=== PATIENT | male | born 1945 | race Caucasian/White ===

== ENCOUNTER 2018-06-07 12:36 | Inpatient (IN) | payer BC, OTHER ==
--- NOTE | ~2018-06-07 | D ---
[facility] [place] [address] DISCHARGE SUMMARY Name: STEPHANIE PENNY Room #: 209-P ADM IN M.R.#: [id number] Admission: 06/07/18 ������������������ Attend Phys: Kishore Perez Discharge: ������������������ Date of : 47 Report #: [id number] THIS REPORT FOR: //name// CC: Kishore Perez Paulino Shanique DATE OF SERVICE: 06/08/2018 ADMITTING DIAGNOSIS: Persistent paroxysmal atrial fibrillation. PROCEDURES PERFORMED: 1. Electrical cardioversion. 2. Supervision of conscious sedation. DISCHARGE MEDICATIONS: 1. Home meds. 2. Amiodarone 200 mg p.o. b.i.d. for a week, q.a.m. indefinitely. FOLLOWUP: Dr. Perez in 4 weeks. BRIEF CLINICAL HISTORY: See history and physical in chart. HOSPITAL COURSE: The patient was admitted to the hospital and underwent IV amiodarone initiation. He tolerated this well, but did not convert to sinus rhythm and subsequently on the morning following his admission, he was brought to the cardiac catheterization laboratory where electrical cardioversion was performed without complications. A synchronized 200 joule shock was then performed via AP paddles, which converted him to sinus rhythm. He tolerated the procedure well. Post-procedure, he was allowed to ambulate and is being discharged to home with previously stated discharge instructions and medications, in improved and stable condition. DISCHARGE DIET: [place] [employer] step 1 diet. ��������������������������������������������� ���������������������������������������� By: ��������������������������������������������� 1329 1343 Kishore Perez MD /taylor
--- NOTE | ~2018-06-07 | P ---
[facility] [place] [place] [address] PROCEDURE REPORT Name: STEPHANIE PENNY Room #: 209-P ADM IN M.R.#: [id number] Admission: 06/07/18 ������������������ Attend Phys: Kishore Perez Discharge: ������������������ Date of : 47 Report #: [id number] THIS REPORT FOR: //name// CC: Kishore Perez Paulino Grimesrei DATE OF SERVICE: 06/08/2018 PROCEDURE: 1. Electrical cardioversion with continuous oximetric monitoring. 2. Conscious sedation, supervision. PROMOTIONAL MARKETING AGENT: Kishore Perez MD. BRIEF DESCRIPTION OF PROCEDURE: After informed consent was obtained, the patient was brought to the cardiac catheterization laboratory, prepped and hold. AP paddles were then placed and conscious sedation was initiated with 4 mg of Versed and 25 of Demerol IV push. A single isolated synchronized shock at 200 joules biphasic mode was performed. This converted the patient to sinus rhythm. He was subsequently reversed. No complications were noted. The patient tolerated the procedure well. ��������������������������������������������� ���������������������������������������� By: ��������������������������������������������� 1327 1336 Kishore Perez MD /nt
[2018-06-07 14:05] LABS: HEMATOCRIT 42.1 % (42.0-52.0); HEMOGLOBIN 14.3 gm/dL (14.0-18.0); MCH 31.2 pg (26.0-34.0); MCV 91.8 fL (80.0-100.0); RBC 4.58 mil/uL (4.50-6.00); RDW 14.3 % (10.5-14.5); WBC 4.7 thou/uL (4.0-11.0)
[2018-06-07 14:21] LABS: CALCIUM 9.2 mg/dL (8.5-10.1); POTASSIUM 3.6 mmol/L (3.5-5.1)
--- NOTE | 2018-06-07 14:40 | NUR ---
PT ADMIT FOR A FIB AMIODARONE DRIP STARTED . PT IS ALERT AND ORIENTED X4. PLEASANT SPOUSE WITH PT LUNGS ARE CLEAR. PT WITH SPOUSE. ON ROOM AIR. BLOOD PRESSSURE HIGH ON ADMISSION BUT DIDNT TAKE BLOOD PRESSURE MEDS. BLOOD PRESSURE MEDS GIVEN TO PT UPON ARIVAL. NOTIFIED DR. 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 PT REPORTS HE HAS HAD IS SINCE SAM. DENIES CHEST PAIN. WILL CONTINUE TO ASSESS AND MONITOR PTS STATUS WITH ADMISISON
[2018-06-07 20:48] VITALS: BP 159/97
[2018-06-07 23:34] VITALS: BP 157/106
--- NOTE | 2018-06-08 04:18 | NUR ---
Pt admitted for elective cardioversion. On Amiodarone drip. BP remains elevated, and pt remains asymptomatic. pt is Afib of court recording monitor. Denies chest pain, nausea or vomiting. possible cadioversion to be done this morning after EKG confirmation of Afib. Uses home CPAP, O2 SATS above 90. will continue to follow poc.
[2018-06-08 04:23] VITALS: BP 169/111
--- NOTE | 2018-06-08 08:38 | EKG ---
[address] [address] ELECTROCARDIOGRAM REPORT Name: ZOHAIBFORTUNATOCricket Fritz Room #: 209-P ADM IN M.R.#: [id number] ������������������ Admission: 06/07/18 ������������������ Attend Phys: Kishore Perez Discharge: ������������������ Date of : 47 Report #: [id number] ����������������������������������������������������������������� [id number] THIS REPORT FOR: //name// 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[employer]: [employer] : 1945 Requested By: Mey Webb Order Number: [id number] MD: Jesús Melchor Measurements Intervals [place] Rate: 72 P: [place]: QRS: -29 QRSD: 97 T: 22 QT: 494 QTc: 541 Interpretive Statements Atrial fibrillation Inferior infarct, old Baseline wander in lead(s) V3 No previous ECG available for comparison Electronically Signed On 06-08-2018 8:37:59 COMPUTATIONAL GENETICIST by Jesús Melchor [email or web address] ��������������������������������������������� <ELECTRONICALLY SIGNED> ���������������������������������������� By: Jesús Melchor MD ��������������������������������������������� 06/08/18 0837 0649 [id number] Jesús Melchor MD /DEDRICK
[2018-06-08 09:20] VITALS: BP 157/91
[2018-06-08 13:57] VITALS: BP 157/91
[2018-06-08] MEDS ORDERED: PACERONE 200 M200 M1 PO ×2 (13:59→14:00)
--- NOTE | 2018-06-08 14:14 | NUR ---
PT POST CARDIOVERSION. SPOKE WITH DR. BROOKS, PT OKAY TO DISCHARGE AT 1500. CALLED IN SCRIPTS TO PHARMACY FOR AMIODARONE. PT TO DISCHARGE ON 200 MG BID X2 WEEKS THEN TAKE 200 MG PO DAILY. CONTINUE HOME MEDICATION. FOLLOW UP APPOINTMENT IN 4 WEEKS.
--- NOTE | 2018-06-08 15:46 | NUR ---
DISCHARGE EDUCATION COMPLETE WITH PATIENT. IV TAKEN OUT. TELEMONITOR OFF. AT BEDSIDE DURING DISCHARGE. AWARE OF FOLLOW UP APPOINTMENT.
== END 2018-06-08 16:23 | disposition home or self-care (01) | DRG 310 ==
LOC: 2N 12:36 → ENTRNSPT 06-08 15:16 → EDTRNSPTSTS 06-08 15:20 → 2N 06-08 16:23
PROVIDERS: Nurse Practitioner Gerontology; ADMIT Internal Medicine
PROC: 5A2204Z Restoration of Cardiac Rhythm, Single (ICD-10-PCS; principal; 2018-06-08)
DX: I48.91 Unspecified atrial fibrillation (principal); I10 Essential (primary) hypertension; E78.5 Hyperlipidemia, unspecified; F41.9 Anxiety disorder, unspecified; F32.9 Major depressive disorder, single episode, unspecified
CPT/HCPCS: 10081; 10797

== ENCOUNTER → 2019-06-07 | Outpatient (CLI) | payer BC ==
[~2019-06-07] MED LIST: CELEXA 10 MG TA10 M1 PO; CHLORTHALIDONE25 MG PO; ELIQUIS5 MG PO; KLOR-CON 1010 MEQ PO; LIPITOR 20 MG T20 M1 PO; NEXIUM 40 MG CA40 M1 PO; PACERONE 200 M200 M1 PO; ZESTRIL40 MG PO
== END ==
LOC: SJCVCIMAG 11:29
DX: I11.9 Hypertensive heart disease without heart failure (principal); I48.0 Paroxysmal atrial fibrillation; R06.00 Dyspnea, unspecified

== ENCOUNTER → 2019-06-16 | Outpatient (CLI) | payer BC ==
[~2019-06-16] VITALS: Ht 167.6 cm; Wt 89.4 kg
--- NOTE | ~2019-06-16 | O ---
[facility] [place] [address] OPERATIVE REPORT Name: STEPHANIE PENNY Room #: REG [facility] Galo#: [id number] Admission: 06/16/19 Attend Phys: Kishore Perez Discharge: Date of : 47 Report #: [id number] THIS REPORT FOR: cc: Paulino Bay MD,Paulino Perez,Kishore Finnegan MD ~ CC: Kishore Bay DATE OF SERVICE: 06/16/2019 INDICATIONS: This is a 73-year-old male patient with symptomatic paroxysmal atrial fibrillation. PROCEDURE PERFORMED: 1. Electrical cardioversion. 2. Supervision of conscious sedation. CARDIOLOGY: Kishore Perez M.D. BRIEF DESCRIPTION OF PROCEDURE: After informed consent was obtained, the patient was brought to the cardiac catheterization laboratory prep and hold. He was sedated with 3 mg of IV Versed and 50 mg of IV Demerol. Continuous electrocardiographic and oximetric monitoring was carried forth throughout the procedure. One synchronized 200 joules biphasic was performed, which converted the patient to sinus rhythm. He was then allowed to recover, monitored without any complications. The patient tolerated the procedure well. By: [id number] Kishore Perez MD /nt
[2019-06-16 08:25] VITALS: BP 154/102
== END | disposition home or self-care (01) ==
LOC: CATH 08:01
DX: I48.0 Paroxysmal atrial fibrillation (principal); I10 Essential (primary) hypertension; E78.5 Hyperlipidemia, unspecified; K21.9 Gastro-esophageal reflux disease without esophagitis; E66.09 Other obesity due to excess calories; G47.33 Obstructive sleep apnea (adult) (pediatric); Z98.890 Other specified postprocedural states; Z79.899 Other long term (current) drug therapy; Z82.49 Family history of ischemic heart disease and other diseases of the circulatory system; Z90.49 Acquired absence of other specified parts of digestive tract; Z87.891 Personal history of nicotine dependence; Z79.01 Long term (current) use of anticoagulants

== ENCOUNTER → 2020-03-13 | Outpatient (CLI) | payer BC ==
[2020-03-13 11:40] VITALS: BP 150/90
--- NOTE | 2020-03-13 22:46 | CATHLAB ---
[facility] [place] [address] INVASIVE PROCEDURE REPORT Name: STEPHANIE PENNY Room #: REG SAMY Rosenthal#: [id number] Admission: 03/13/20 Attend Phys: Kishore Perez Discharge: Date of : 47 Report #: [id number] THIS REPORT FOR: cc: Paulino Bay MD, Randy MD Lammoglia, Francisco J. MD ~ APPROVED REPORT Study performed: 03/13/2020 13:36:15 Patient Status: Out-Patient Room #: Event Personnel: Kishore Perez MD Exam: LINQ removal The patient is a 74 year-old male with a history of symptomatic paraoxysmal atrial fibrillation. Explanted Devices: [employer] LINX Implantable Loop Recorder implanted 3 years agoe at [facility] Procedure The patient underwent informed consent. We discussed the details of the procedure including the risks, which include, but not limited to bleeding, infection, vascular damage, cardiac perforation, and pneumothorax. The patient underwent local anesthesia, with no anesthesia related complications. The patient was brought to the EP/Cardiac Catheterization laboratory and the left chest and shoulder were prepped and draped in a sterile manner. After informed consent was obtained the patient was brought to the cardiac catheterization laboratory. The left chest was prepped and drapped in usual sterile manner. Lidocaine was then instilled at the proposed incision site and along the ILR pocket to be explanted. Utilizing an 11 blade the skin incision was performed. With sharp and blunt disection the device was retrieved. Complications The patient tolerated the procedure well and there were no complications associated with the procedure. Findings Estimated Blood Loss: 5cc [facility] [address] [address] INVASIVE PROCEDURE REPORT Name: STEPHANIE PENNY Room #: REG [facility]#: [id number] Admission: 03/13/20 Attend Phys: Kishore Conde Discharge: Date of : 47 Report #: [id number] Conclusion 1. successful explantation of a [employer] LinxQ ILR Recommendations 1. as per post implantation protocol since a new device will be implanted <ELECTRONICALLY SIGNED> By: Kishore Perez MD 03/13/205 44 44 Kishore Perez MD /INF
--- NOTE | 2020-03-13 22:55 | LINQ ---
[facility] [place] [address] LINQ PROCEDURE REPORT Name: STEPHANIE PENNY Room #: REG SAMY Rosenthal#: [id number] Admission: 03/13/20 Attend Phys: Isaac Preez Discharge: Date of : 47 Report #: [id number] THIS REPORT FOR: cc: Paulino Bay MD, Randy MD Lammoglia, Francisco J. MD ~ THIS REPORT FOR: //name// APPROVED REPORT Study performed: 03/13/2020 13:38:39 Patient Status: Out-Patient Room #: Event Personnel: ISAAC PEREZ MD Exam: REVEAL LINQ IMPLANT Indications: symptomatic paroxysmal atrial fibrillation, pre atrial fib ablation for long-term surveillence The patient is a 74 year-old male with a history of paf. Implanted Devices: [employer] REVEAL LINQ LNQ11 SN# [id number] USE BY 2020-12-07 Procedure The patient underwent informed consent. We discussed the details of the procedure including the risks, which include, but not limited to bleeding, infection, vascular damage, cardiac perforation, and pneumothorax. The patient underwent local anesthesia, with no anesthesia related complications. After informed consent was obtained the patient was prepped and draped in usual sterile manner. After explantation of a prior place ILR the existing pocket was enlarged utilizing both sharp and blunt dissection. Additional local anesthetic was required. The new device was then inserted using the insertion tool without difficulty. The tract was the closed with two simple interupted sutures bringing the subcutaneous fascial tissue together. The skin was closed with a 4-0 subcuticular stitch dermabond steristrips were used as a suplement to suture. 4x4 and opsite used. No complications. Patient tolerated procedure well Conclusion 1. successful implantation of a Adim8 LINQ device [address] [address] LINQ PROCEDURE REPORT Name: STEPHANIE PENNY Room #: REG [facility]#: [id number] Admission: 03/13/20 Attend Phys: Isaac Conde Discharge: Date of : 47 Report #: [id number] Recommendations 1. Routine post implantation protocol <ELECTRONICALLY SIGNED> By: Isaac Perez MD 03/13/20 2254 [id number] Isaac Perez MD /INF
== END | disposition home or self-care (01) ==
LOC: CATH 09:06
PROVIDERS: ATTEND Internal Medicine
DX: I48.0 Paroxysmal atrial fibrillation (principal); Z98.890 Other specified postprocedural states; Z79.899 Other long term (current) drug therapy; Z79.01 Long term (current) use of anticoagulants